=== PATIENT | male | born 1975 | race Caucasian/White ===

== ENCOUNTER 2023-07-06 08:35 | Outpatient (CLI) | payer BC, SELFPAY | END 2023-07-06 08:36 | disposition home or self-care (01) | PROVIDERS: PCP Nurse Practitioner Family; Visit Provider Nurse Practitioner Family | DX: Z13.220 Encounter for screening for lipoid disorders (principal); I10 Essential (primary) hypertension; Z12.5 Encounter for screening for malignant neoplasm of prostate; Z13.29 Encounter for screening for other suspected endocrine disorder; R00.0 Tachycardia, unspecified; R07.9 Chest pain, unspecified; R06.09 Other forms of dyspnea | CPT/HCPCS: 80053; 80061; 84443; 84484; 85025; G0103 ==

== ENCOUNTER 2023-07-19 09:40 | Outpatient (CLI) | payer BC, SELFPAY ==
--- OUTSIDE RECORDS SUMMARY | 2023-07-19 09:42 | XMS_ITS | Patient Health Record ---
Author Name Unknown Organization [email or web address] [facility] [address] [place] [address] Support Name Relationship Address Phone René Nguyen Guarantor Unknown [phone] REASON FOR REFERRAL No Information PLAN OF TREATMENT Pending Test Test Name Order Date Vision Screening 11/19/2018 Vision Screening 10/22/2019 Hearing Screening 10/22/2019 Hearing Screening 11/19/2018 PFT 11/19/2018 PFT 10/22/2019 FIT TESTING 10/22/2019 FIT TESTING 11/19/2018 Lipid Panel With LDL/HDL Ratio 9 CMP14+CBC/D/Plt+UA/M 11/19/2018 Insurance Providers Payer Name Payer Address Payer Phone Subscriber Number Group Number Insured Name Patient Relationship to Insured Coverage Start Date Coverage End Date [employer] [place] [facility] layne @[employer] René Nguyen Self - patient is the insured ACBL DO NOT USE Was [facility] Constanza [email or web address] [id number] René Nguyen Self - patient is the insured
== END 2023-07-19 09:41 | disposition home or self-care (01) ==
LOC: RAD 09:41
PROVIDERS: PCP Nurse Practitioner Family; Visit Provider Nurse Practitioner Family
DX: R07.9 Chest pain, unspecified (principal); I35.1 Nonrheumatic aortic (valve) insufficiency; I34.0 Nonrheumatic mitral (valve) insufficiency; R00.0 Tachycardia, unspecified; R06.09 Other forms of dyspnea
CPT/HCPCS: 93306

== ENCOUNTER 2023-08-01 18:37 | Outpatient (CLI) | payer BC, SELFPAY ==
--- OUTSIDE RECORDS SUMMARY | 2023-08-01 18:40 | XMS_ITS | Patient Health Record ---
Author Name Unknown Organization [employer] [facility] [address] [place] [address] Support Name Relationship Address Phone René Nguyen Guarantor Unknown [phone] REASON FOR REFERRAL No Information PLAN OF [...] Start Date Coverage End Date [employer] [place] [facility] layne @[employer] René Nguyen Self - patient is the insured ACBL DO NOT USE Was [facility] Constanza [email or web address] [phone] René Nguyen Self - patient is the insured
--- NOTE | 2023-08-22 11:57 | W.PM.SLEEP ---
Sleep Study Details Details Interpreting Provider: Staci Date of Sleep Study: 08/01/23 Sleep Study Details: STUDY TYPE:? Hospital-based attended ? BMI:? 36.3 ORDERING PROVIDER:Anjelica Vora INDICATION:? Concern about sleep apnea ? SLEEP SUMMARY:? Total sleep time 369 minutes RESPIRATORY SUMMARY:? AHI 51.2, supine 77.4, nonsupine 19.2. There was no supine REM sleep seen Mean oxygen awake 93 asleep 92 minimum 70 27.5 minutes oxygen between 80 and 88%, 4.4 minutes oxygen between 70 and 79% PERIODIC LIMB MOVEMENTS OF SLEEP:? Index 1.5, index with arousal 0 CARDIAC:? Awake 91 asleep 88 no arrhythmias noted IMPRESSION:? Severe obstructive sleep apnea with supine position dependency but apnea present in all positions RECOMMENDATION: AutoSet CPAP pressure 4-17. Weight loss is also recommended
== END 2023-08-01 18:38 | disposition home or self-care (01) ==
LOC: SLEEP 18:38
PROVIDERS: PCP Nurse Practitioner Family; Visit Provider Otolaryngology
DX: G47.33 Obstructive sleep apnea (adult) (pediatric) (principal)
CPT/HCPCS: 95810

== ENCOUNTER 2023-08-22 08:07 | Outpatient (RCR) | payer BC, SELFPAY ==
[2023-08-22] MEDS: REGADENOSON 0.4 MG/5 ML SYRINGE IVP (09:56)
[2023-08-22] MEDS: SODIUM CHLORIDE 0.9 % (FLUSH) 10 ML SYRINGE IVF (09:57)
[2023-08-22 09:58] VITALS: BP 137/90; PULSE 100; RESP 16
--- NOTE | 2023-08-22 11:37 | W.PM.STED ---
Stress Test Note Date Date of test: 08/22/23 Providers Primary care provider: Mag Vora Stress test physician: John Olivarez Stress Test Note Stress test ordered: Lexiscan Indication for test: Dyspnea on exertion Stress test medicine: Lexiscan Results discussion: The patient is a very nice gentleman who presents here for the above test after discussion the risks benefits and side effects he would like to proceed cardiac stress test medical history form is reviewed entirely. Pretest EKG, shows normal sinus rhythm. The ventricular rate of 80 ED, blood pressure is 132/87. Standard Lexiscan protocol is done walking for a time period of 5 minutes, he achieved a metabolic equivalent of 1.6 Mets. Maximum heart rate was 121, he was asymptomatic during infusion and time. He recovered normally, with absence of any chest pain or any anginal equivalent symptoms review of the tracing showed no change from his baseline, there is no dysrhythmias, no ST wave changes, suggestive of ischemia. Impression: Negative electrographic portion of Lexiscan Follow up suggested: Await nuclear images these will be read by nuclear Medicine, clinical correlation with these will be needed. Patient recovered normally there were no complications.
== END 2023-08-22 10:01 | disposition home or self-care (01) ==
LOC: STRESS 08:07
PROVIDERS: PCP Nurse Practitioner Family; Visit Provider Internal Medicine Cardiovascular Disease
DX: R06.09 Other forms of dyspnea (principal)
CPT/HCPCS: 78452; 93016; 93017; A9500; J2785

== ENCOUNTER 2023-11-07 10:14 | Outpatient (CLI) | payer BC, SELFPAY ==
[2023-11-07 14:04] LABS: SARS PCR* Negative SARS-CoV-2 (Negative)
== END 2023-11-07 10:15 | disposition home or self-care (01) ==
LOC: KYNREF 10:14
PROVIDERS: PCP Nurse Practitioner Family; Visit Provider Nurse Practitioner Family
DX: J11.1 Influenza due to unidentified influenza virus with other respiratory manifestations (principal)
CPT/HCPCS: 87635

== ENCOUNTER 2024-08-01 10:59 | Outpatient (CLI) | payer BC, SELFPAY | END 2024-08-01 11:00 | disposition home or self-care (01) | PROVIDERS: PCP Nurse Practitioner Family; Visit Provider Nurse Practitioner Family | DX: Z00.01 Encounter for general adult medical examination with abnormal findings (principal); E78.1 Pure hyperglyceridemia; I10 Essential (primary) hypertension; Z12.5 Encounter for screening for malignant neoplasm of prostate; Z13.1 Encounter for screening for diabetes mellitus | CPT/HCPCS: 80053; 80061; 83036; 85025; G0103 ==